=== PATIENT | female | born 1970 | race Two or more races ===

== ENCOUNTER 2021-12-26 11:12 | Emergency (ER) | payer SELFPAY ==
[~2021-12-26] VITALS: Ht 167.6 cm; Wt 60.0 kg
[2021-12-26] MEDS ORDERED: ACETAMINOPHEN 325MG TABLET PO ONE (11:45)
[2021-12-26] MEDS ORDERED: IBUPROFEN 400MG TABLET PO ONE (11:45)
[2021-12-26 11:55] VITALS: BP 137/83
[2021-12-26] MEDS ORDERED: BACITRACIN ZINC OINT UDPKT TOP ONE (13:30)
[2021-12-26] MEDS ORDERED: IBUP-2028 MT (13:59)
[2021-12-26] MEDS ORDERED: ACET-2708 MT (13:59)
== END 2021-12-26 14:25 | disposition home or self-care (01) ==
LOC: ER 11:15
DX: S80.11XA Contusion of right lower leg, initial encounter (principal); M79.18 Myalgia, other site; V49.49XA Driver injured in collision with other motor vehicles in traffic accident, initial encounter; Y93.89 Activity, other specified; Y92.89 Other specified places as the place of occurrence of the external cause; Y99.8 Other external cause status
CPT/HCPCS: 70450; 71045; 72125; 72170; 73552; 73590; 99284; Z7610